=== PATIENT | female | born 2000 | race Two or more races ===

== ENCOUNTER 2018-11-19 16:44 | Emergency (ER) | payer OTHER ==
[2018-11-19 16:49] VITALS: BP 115/70
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
[2018-11-19] MEDS ORDERED: Polymyx/Trimethoprim OPTH* 10 ML BTL LEFT EYE ONE (18:52)
== END 2018-11-19 19:06 | disposition home or self-care (01) ==
LOC: ED 16:44
DX: T26.92XA Corrosion of left eye and adnexa, part unspecified, initial encounter (principal); Y92.9 Unspecified place or not applicable
CPT/HCPCS: 99282